=== PATIENT | female | born 2005 | race Caucasian/White ===

== ENCOUNTER 2025-04-08 10:20 | Observation (INO) ==
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
[2025-04-08] MEDS: MoRPHine SULFATE 4 MG/ML 1 ML CARP\\VIAL IV STA (11:20)
[2025-04-08] MEDS: ONDANSETRON INJ 2 MG/ML 2 ML VIAL IV STA (11:21)
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
--- NOTE | 2025-04-08 14:51 | XRay Report ---
XR ankle LT min 3V routine CLINICAL HISTORY: post-reduction COMPARISON: 04/08/2025 FINDINGS: Interval splint. There is improved alignment at the distal tibia and fibula fractures. The re is a small density adjacent to the medial malleolus and medial aspect of the talus, possible tiny avulsion fracture. No dislocation at the tibiotalar joint. IMPRESSION: Improved alignment. ACT 112: Negative or not required by law. Electronically signed by: Yonathan Dunlap M.D. 04/08/2025 2:49 PM
[2025-04-08] MEDS: KETAMINE HCL 10MG/ML SYR IV SCH (15:11)
[2025-04-08] MEDS: KETAMINE HCL 10MG/ML SYR ONE (15:11)
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
--- NOTE | 2025-04-08 18:48 | CT Scan Report ---
EXAM: CT ankle LT wo con CLINICAL HISTORY: fracture, dislocation - reduced TECHNIQUE: Contiguous axial CT images of the ankle joint were obtained without intravenous contrast. Sagittal and coronal multiplanar reformats were acquired. One of the following dose reduction techniques were utilized for this exam: Automated exposure control, adjustment of the mA and/or kV according to patient size, use of iterative reconstruction. COMPARISON: None. FINDINGS: Bones: Displaced comminuted spiral fracture of the lower third of the fibula, oblique intra-articular displaced fracture at the posterior and lateral aspects of the distal tibia Oblique fracture of the posterior tibial malleolus is noted Medial subluxation of the distal tibia with widening of the medial clear space suggesting syndesmotic injury along with widening of the distal tibiofibular interval. Multiple detached bone fragments at the medial aspect of the talus, the medial malleolus tip, and the talus's anterior lateral aspect Joints: Mild joint effusion. No erosions or osteophyte formation. Soft Tissues: Diffuse fat strandings along the subcutaneous and intermuscular fat planes at the distal leg and ankle joint's anterior, medial, and lateral aspects. Muscles: Normal appearance of the surrounding musculature. No muscle atrophy or abnormal density changes. Ligaments and Tendons: Normal appearance of the Achilles tendon and other tendons around the ankle. IMPRESSION: 1. Displaced comminuted spiral fracture of the lower third of the fibula, oblique intra-articular displaced fracture at the posterior and lateral aspects of the distal tibia. 2. Widening of the medial clear space as described suggesting underlying syndesmotic injury. MRI study is suggested if warranted clinically 3. Multiple detached bone fragments at the medial aspect of the talus, the medial malleolus tip, and the talus's anterior lateral aspect are likely avulsion fractures 4. Related joint effusion and soft tissue swellings Electronically signed by Joni Devine 04-08-2025 6:48 PM
[2025-04-08] MEDS ORDERED: ONDANSETRON INJ 2 MG/ML 2 ML VIAL IV PRN (19:06)
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
[2025-04-08] MEDS: HYDROmorphone INJ 0.5 MG/0.5 ML SYR IV PRN (21:03)
[2025-04-08] MEDS: KETOROLAC 30 MG/ML VIAL IV PRN (21:46)
[2025-04-08] MEDS: DOCUSATE SODIUM 100 MG CAP PO SCH (21:47)
[2025-04-08 22:09] LABS: Hematocrit (blood only) 33.9 % (37.0-47.0); Mean Corpuscular Hgb Conc 32.4 g/dL (32.0-36.0); Mean Corpuscular Volume 80.1 fL (80.0-100.0); Mean Platelet Volume 10.3 fL (9.4-12.4); Platelet Count 260 K/uL (130-400); RDW Coefficient of Variation 16.2 % (11.5-14.5); RDW Standard Deviation 47.4 fL (36.4-46.3); Red Blood Count 4.23 M/uL (4.20-5.40); White Blood Count 10.13 K/ul (4.8-10.8)
[2025-04-08] MEDS: oxyCODONE HCL IR 5 MG TAB (IMMEDIATE RELEASE) PO PRN (23:36)
[2025-04-09] MEDS ORDERED: BUPIVACAINE 0.25% PF 30 ML VIAL ONE (07:58)
[2025-04-09] MEDS ORDERED: DEXAMETHASONE SOD INJ 4 MG/ML VIAL ONE ×2 (07:58→12:21)
[2025-04-09] MEDS ORDERED: EPINEPHrine INJ 1 MG/ML AMP ONE (07:58)
[2025-04-09] MEDS: LACTATED RINGER'S 1,000 ML IV SCH (10:17)
--- NOTE | 2025-04-09 10:39 | Anesthesiology Consultation ---
Date of Service April 09, 2025 Assessment & Plan (1) Encounter for pre-operative examination: Chart Review Chart Review: Acceptable Risk for Surgery and Patient NOT seen in Pre Admission Testing Consults Requested none History Surgery Operation Date: 04/09/25 07:00 Proposed Procedures p Left Open Reduction Internal Fixation Ankle - Danny Gant MD Height/Weight Height: 5 ft 5 in Weight: 72.8 kg Allergies Allergy/AdvReac Type Severity Reaction Status Date / Time No Known Allergies Allergy Unverified 04/08/25 15:20 Medications Home Medications Medication Instructions Recorded Confirmed Last Taken No Known Home Medications 04/08/25 04/08/25 Unknown Active Medications Generic Name Dose Route Start Last Admin Trade Name Freq PRN Reason Stop Dose Admin Docusate Sodium 100 mg 04/08/25 21:00 04/09/25 07:32 Docusate Sodium 100 Mg Cap PO 05/08/25 20:59 100 mg BID LUIS Administration Hydromorphone HCl 0.25 mg 04/08/25 20:50 04/09/25 03:57 Hydromorphone Inj 0.5 Mg/0.5 Ml Syr IV 04/22/25 20:49 0.25 mg Q6H PRN Administration Pain Lactated Ringer's 1,000 mls @ 15 mls/hr 04/09/25 10:15 04/09/25 10:17 Lr IV 04/12/25 10:14 15 mls/hr .Q24H LUIS Administration Ketorolac Tromethamine 30 mg 04/08/25 19:06 04/09/25 07:32 Ketorolac 30 Mg/Ml Vial IV 04/13/25 19:05 30 mg Q6H PRN Administration Pain Oxycodone HCl 5 mg 04/08/25 20:50 04/08/25 23:36 Oxycodone Hcl Ir 5 Mg Tab (Immediate Release) PO 04/22/25 20:49 5 mg Q4 PRN Administration Pain NPO Date Last Intake of Fluids: 04/08/25 Time Last Intake of Fluids: 23:00 Date Last Intake of Solids: 04/08/25 Time Last Intake of Solids: 23:00 Past Medical History Medical History (Updated 04/09/25 @ 10:39 by Stephon Worthy MD) Encounter for pre-operative examination No pertinent past medical history Exercise / Class Metabolic Activity II 4-5 Yardwork/Stairs/Walk up hill Social History Smoking Status: Current every day smoker Do You Dip or Chew Tobacco: No Hx Alcohol Use: Yes Alcohol type: wine and hard liquor alcohol intake frequency: a few times a month Hx Substance Use: Yes substance use type: marijuana Last Used Substance: Days (ago) Last Used Substance Other:: Approximately 3 weeks since last marijuana use. Physical Exam Vital Signs Last Vital Signs Temp 36.6 C 04/09/25 10:07 Pulse 99 H 04/09/25 10:07 Resp 20 04/09/25 10:07 BP 114/72 04/09/25 10:07 Pulse Ox 99 04/09/25 10:07 O2 Del Method Room Air 04/09/25 10:07 O2 Flow Rate 2 04/08/25 14:56 Testing Laboratory Results 04/08/25 21:54 Blood Type B Positive 04/08/25 19:29 Antibody Screen NEGATIVE 04/08/25 19:29 04/08/25 17:01 POC Ur Test NEG
[2025-04-09] MEDS ORDERED: fentaNYL citrate PF 100 MCG/2 ML VIAL IV PRN (10:52)
[2025-04-09] MEDS ORDERED: ePHEDrine sulfate 50 MG/ML AMP IV PRN (10:52)
[2025-04-09] MEDS ORDERED: ONDANSETRON INJ 2 MG/ML 2 ML VIAL IV PRN (10:52)
[2025-04-09] MEDS ORDERED: PROMETHAZINE HCL 6.25 MG in SODIUM CHLORIDE 0.9% 50 ML IV PRN (10:52)
[2025-04-09] MEDS ORDERED: ATROPINE SULFATE 0.1 MG/ML 10ML SYR IV PRN (10:52)
--- NOTE | 2025-04-09 11:34 | History & Physical Bridge Note ---
Date of Service April 09, 2025 History & Physical Bridge Note I have examined the patient, reviewed the History & Physical and in the interval since the performance of the History & Physical I have noted the following changes of clinical significance: no changes noted
[2025-04-09] MEDS ORDERED: MIDAZOLAM HCL 1 MG/ML 2ML VIAL ONE (11:36)
[2025-04-09] MEDS ORDERED: LIDOCAINE 2% 2 ML VIAL/AMP(20MG/ML) INFIL ONE (12:04)
[2025-04-09] MEDS ORDERED: PROPOFOL IV EMULSION 10 MG/ML 20 ML VIAL IV ONE (12:04)
[2025-04-09] MEDS: ceFAZolin 2000MG 2,000 MG/15 ML SYR IV SCH ×2 (12:15→20:31)
[2025-04-09] MEDS ORDERED: ONDANSETRON INJ 2 MG/ML 2 ML VIAL ONE (12:21)
[2025-04-09] MEDS: TRANEXAMIC ACID 100 MG/ML 10 ML VIAL IV ONE (12:23)
[2025-04-09] MEDS ORDERED: fentaNYL citrate PF 100 MCG/2 ML VIAL ONE (12:24)
[2025-04-09] MEDS: LIDOCAINE 1%/EPINEPHRINE 1:100,000 50 ML VIAL ONE (13:24)
[2025-04-09] MEDS: BUPIVACAINE/EPINEPHRINE 0.5% MPF 1:200,000 30 ML VIAL ONE (13:24)
[2025-04-09] MEDS: TRANEXAMIC ACID / 0.7% NACL 1000MG/100ML BAG IV ONE (13:27)
[2025-04-09] MEDS ORDERED: HYDROmorphone INJ 1 MG/ML SYRINGE ONE (13:57)
[2025-04-09] MEDS: VANCOMYCIN HCL 1000MG/20ML VIAL ONE (14:11)
--- NOTE | 2025-04-09 14:33 | Fluoroscopy Report ---
FL ankle LT 2V CLINICAL HISTORY: LT ORIF ANKLE COMPARISON STUDY: 04/08/2025 FLUOROSCOPY TIME: 45 seconds FLUOROSCOPY IMAGES: 5 EXPOSURE DOSE: 2 mGy FINDINGS: Fluoroscopy was provided for internal fixation of the left ankle. IMPRESSION: Intraoperative fluoroscopy. ACT 112: Negative or not required by law. Electronically signed by: Yonathan Dunlap M.D. 04/09/2025 2:31 PM
[2025-04-09] MEDS ORDERED: KETOROLAC 30 MG/ML VIAL ONE (14:36)
--- NOTE | 2025-04-09 14:54 | Operative Report ---
Post Operative Report Pre & Post Diagnosis Operation Date: 04/09/25 07:00 Pre-Op Diagnosis: Fracture dislocation of left ankle Post-Op Diagnosis: Fracture dislocation of left ankle I identified the patient and participated in the time-out.: Yes Procedure Operation Date: 04/09/25 07:00 Actual Procedures p Left Open Reduction Internal Fixation Ankle(Left) - Danny Gant MD Surgeon Danny Gant MD Media Theorist And Author Of Luz Grant PA-C; Denny Alex MS-2 Estimated Blood Loss 5 Findings Consistent with Post-Op Diagnosis Specimens none Description of Procedure I was present during the entire case assisting with positioning, prepping, draping, wound retraction, wound closure, dressing and splint application. No fellow present. Please see Dr. Gant procedure note for specifics of the case. I attest to the content of the Intraoperative Record and any orders documented therein. Any exceptions are noted below.
--- NOTE | 2025-04-09 15:02 | Operative Report ---
Post Operative Report Pre & Post Diagnosis Operation Date: 04/09/25 07:00 Pre-Op Diagnosis: Fracture dislocation of left ankle Post-Op Diagnosis: Fracture dislocation of left ankle, Mcgee C type lateral malleolus fracture with a shell like posterior malleolar fracture, medial deltoid ligament disruption and syndesmotic disruption I identified the patient and participated in the time-out.: Yes Procedure Operation Date: 04/09/25 07:00 Actual Procedures p Left Open Reduction Internal Fixation Ankle, ORIF of syndesmosis and repair of medial deltoid ligament avulsion(Left) - Danny Gant MD Surgeon Danny Gant MD Linen Room Attendant Luz Grant PA-C; Denny Alex MS-2 Estimated Blood Loss 5 Findings Consistent with Post-Op Diagnosis Specimens None Anesthesia Type General Regional Complications none Disposition Accompanied Patient To Recovery: No Disposition: Recovery Room Indications Patient sustained a fall yesterday and a fracture dislocation of her left ankle. It was reduced in the ER. Patient was admitted to the hospital for possible surgery today depending on her swelling. Description of Procedure Patient identified. Informed consent obtained. Preprocedural timeout performed. I identified the operative site and marked with my initials. A preop surgical timeout performed. Preop dose of IV antibiotics given. She was taken to the OR positioned supine on the operating room table. The anesthetic was administered. A tourniquet was applied to the left thigh. Bone foam pad under the leg was utilized. 2 bumps under the left hip. She was inspected in the holding area and found to have minimal swelling and bruising. No blistering. Skin wrinkles are present and no tight shiny skin. She received a preop dose of IV antibiotics and TXA. DVT prophylaxis with early patient mobility.Her ankle was unstable medial to lateral. Fluoroscopic guidance was utilized about the surgical procedure. Limb exsanguinated with the Esmarch. Tourniquet plated 250 mmHg. Approximate 15 cm lateral incision was made centered over the fracture site. There was a 1 inch fat layer which was dissected down through to the level of the periosteum. Careful subperiosteal with exposure of the fracture site was performed and is much as to see the posterior butterfly fragment but not dissected out or devascularize it. The main fibular fracture fragments were dissected free of soft tissues and intervening soft tissue was removed. The fracture site was cleaned with irrigation dental pick and curette. This was a small short oblique jagged fracture which was transverse anteriorly with a butterfly fragment posterior. Using bone clamps I was able to anatomically reduce it and adjust rotation as I could see both the medial and lateral cortices. Once this was anatomically aligned I put a bone clamp across the fracture holding the posterior butterfly fragment in place as a reduction aid. I then selected a 10 hole one third tubular plate and pre-bent bent it to aligned with the fibula. There was slight bowing of the fibula laterally which was corrected when the plate was applied and the screws were inserted. I applied the plate so that there were 2 screws over the fracture site and 4 proximal and distal and 1 in position for a syndesmotic screw. This was checked in the AP and lateral planes. Of note the medial clear space was able to be anatomically aligned in this position and the posterior malleolar fracture was anatomically aligned. The plate was bent and twisted to align reasonably well to the bone. I inserted a bicortical cortical screws proximally and distally to hold the plate in place and then fixated with 3 additional locking screws proximally and 2 additional locking screws distally. All were bicortical. Fracture was anatomically reduced and aligned. I then made a medial incision and bluntly dissected down to the level of the periosteum. The anterior half of the deltoid ligament had been avulsed. The saphenous neurovascular structures were not identified but were retracted anteriorly with the skin flap. I placed a large bone clamp across the ankle mortise. The ankle was maximally dorsiflexed. The clamp was tightened. A 3.5 millimeter screw was inserted in a bicortical fashion and adjusted x 1 to be in the appropriate position. Initially angled too far anterior and slightly oblique. Prior to this the syndesmosis was stressed and found to be unstable. Preop prior to fixing this I opened the medial side and I could insert a Markham in between the medial malleolus and the medial talus and I swept through there to make sure that there was no intervening soft tissue. After the syndesmosis had been fixated this was not possible. The medial side was irrigated out to ensure that there were no bone fragments present. The syndesmotic screw was a 3.5 mm for cortical screw which was several millimeters proud on the medial side on purpose. I then used 2 Arthrex all suture anchors to repair the medial deltoid ligament back in an anatomic location using horizontal mattress stitches. Tourniquet let down. Meticulous hemostasis achieved. On the lateral side the lateral compartment had been opened and elevated off of the fibula for exposure. This was allowed to fall back over the proximal half of the plate. There really was not any periosteum per se to fixate over the plate at this level. I carefully took some small bites through the fatty layer and reapproximated the deep tissues with 0 Vicryl. This was followed by 2-0 Vicryl and 3-0 Vicryl on the skin and alex. On the medial side 2-0 and 3-0 Vicryl used for the dermal layer followed by alex. The leg was cleaned with wet and dry sponges a soft roll dressing was applied Xeroform 4 x 4's ABD soft wrap and a posterior splint with the ankle in neutral position. [employer] Sales Associate images of the hardware and reduction of the ankle mortise syndesmosis and posterior malleolar fracture were obtained. Patient wake from anesthesia without difficulty and taken to the recovery room in stable condition. There were no specimens or complications. Counts were correct and blood loss estimated to be 5 cc. At the conclusion of the operation I spoke the patient's family informed of my findings and postop instructions were given. She will be admitted to the hospital for elevation postop antibiotics. She will be nonweightbearing on the left leg for 6 weeks. Follow- up in 2 weeks for recheck. Half a gram of powdered vancomycin was distributed between the medial and lateral incisions. At the time of closure. I attest to the content of the Intraoperative Record and any orders documented therein. Any exceptions are noted below.
--- NOTE | 2025-04-09 15:28 | Anesthesiology Progress Note ---
Date of Service April 09, 2025 Anesthesia Post Procedure Vital Signs Vital Signs: Temp Pulse Pulse Pulse Resp BP Pulse Ox 04/09/25 15:20 85 16 115/68 100 04/09/25 15:10 79 12 100/59 L 100 04/09/25 15:00 83 12 107/55 L 100 04/09/25 14:54 36 C L 91 H 16 111/62 100 04/09/25 10:07 36.6 C 99 H 20 114/72 99 04/09/25 07:22 36.6 C 84 16 103/67 99 04/08/25 20:52 36.7 C 103 H 18 108/79 97 04/08/25 20:52 36.7 C 103 H 18 108/79 97 04/08/25 20:52 04/08/25 20:25 104 H 04/08/25 20:00 98 H 19 108/79 99 04/08/25 18:00 95 H 18 111/76 99 04/08/25 16:26 99 H 04/08/25 16:00 80 17 106/67 99 Pulse Ox O2 Del Method O2 Del Method O2 Flow Rate 04/09/25 15:20 Oxymask 2 04/09/25 15:10 Oxymask 6 04/09/25 15:00 Oxymask 6 04/09/25 14:54 Oxymask 6 04/09/25 10:07 Room Air 04/09/25 07:22 Room Air 04/08/25 20:52 Room Air 04/08/25 20:52 Room Air 04/08/25 20:52 99 Room Air 04/08/25 20:25 04/08/25 20:00 04/08/25 18:00 04/08/25 16:26 04/08/25 16:00 Room Air Pain Intensity Left Ankle: Pain Intensity: 5 Transfer of Care Handoff Completed per policy Notes Mental Status: alert / awake / arousable Patient Amnestic to Procedure: Yes Nausea / Vomiting: adequately controlled Pain: adequately controlled Airway Patency, RR, SpO2: stable & adequate BP & HR: stable & adequate Hydration State: stable & adequate Anesthetic Complications: no major complications apparent and Pt Satisfied with anesthetic care
--- NOTE | 2025-04-09 17:19 | Emergency Department Note ---
Pre Sedation Assessment Vital Signs Pulse Resp BP Pulse Ox 04/08/25 18:00 95 H 18 111/76 99 Cardiovascular RRR, no murmur, no edema + regular rate + capillary refill normal Respiratory normal respiratory effort, lungs clear to auscultation Pre-Sedation Airway Assessment Smoking Status: Current every day smoker Hx Sleep Apnea: No Short, Thick Neck: No Thyromental Distance: > or= 3.5 Finger Breadths Oral Cavity: + WNL Mallampati Class: II ASA: ASA2 NPO Status Date of Last Intake of Fluids: 04/08/25 Time of Last Intake of Fluids: Last Oral Intake of Fluids Comment: water Date of Last Intake of Solid Food: 04/08/25 Time of Last Intake of Solid Foods: Procedure Planning Contraindications for Sedation: none Current Medications Reviewed: Yes Notes The planned sedation has been discussed with the patient. Informed Consent was obtained. I have identified the patient, determined the appropriateness of sedation and have assessed the patient immediately prior to the procedure. All medicine(s) and interventions are by my order.
--- NOTE | 2025-04-09 17:20 | Emergency Department Note ---
Post Sedation Assessment Vital Signs Pulse Resp BP Pulse Ox 04/08/25 18:00 95 H 18 111/76 99 Recovery Score Activity: Moves 4 extremities Respiration: Deep Breath/Cough Circulation: +/-20% PreAnes Value Consciousness: Arouseable (by name) Oxygen Saturation: > 92% On Room Air Post Anesthesia Score: 9 Discharge Sedation Level of Care: Fast Track Phase II Unexpected Event: None Post Sedation Plan On clinical assessment, the patient appears to have tolerated the sedation without complications. Patient is recovering as anticipated. Patient will continue to be monitored by nursing and may be discharged when sedation discharge criteria are met per below protocol. Upon Completions of procedure up to 15 minutes continue every 5 minute vital signs and the P.A.R. score; then discharge to a Phase I or Fast Track to Phase II per the following guidelines: * Discharge Patient to appropriate Phase II area if PAR is 8 or greater or return to pre- procedure baseline. The post - procedure orders will be as directed. * If PAR score is less than 8 or not return to pre-procedure baseline then patient will follow Phase I monitoring till PAR is reached for Phase II. The Phase I may be done in procedure room or may call to secure a Phase I area. * If naloxone or flumazenil are used for reversal, hold in Phase I for continued monitoring from when last reversal dose was given for a minimum of 60 minutes or longer pending the nurse and/or physician discretion of patient condition before discharge to Phase II. Please call the Sedation Physician to re-evaluate and complete post-note for discharge to Phase II area. Do NOT discharge from procedure sedation or Phase 1 until post- sedation evaluation note is complete by procedure /sedation MD Sedation Discharge Instructions to be given to the patient at discharge to home. Sedation Data Time Out Team Members Agree on the Following: Correct Patient, Correct Procedure, Correct Site-Side and Allergies Verified Sedation Times Sedation Start Date: 04/08/25 Sedation Start Time: 14:31 Sedation End Date: 04/08/25 Procedure Times Procedure Start Time:: 14:33 Procedure End Time: 14:39
--- NOTE | 2025-04-09 18:31 | Orthopedic Progress Note ---
Date of Service April 09, 2025 Assessment & Plan (1) Fracture dislocation of ankle joint: Plan: Findings discussed. Surgical results reviewed. She is stable postop. Plan for IV antibiotics and PT OT. DVT risk is low and I do not think she requires any formal chemoprophylaxis. Admission and Anticipated Discharge Date Admission Date: April 08, 2025 Subjective Doing well. Surgical findings discussed. Comfortable without significant pain. Physical Exam Physical Exam: She has no feeling in her foot and cannot wiggle her toes secondary to her nerve block. Her foot is warm with capillary refill less than 2 seconds throughout all of her toes Results & Data Vital Signs (Past 12 Hours) Vital Signs Temp Pulse Pulse Resp BP Pulse Ox O2 Del Method 04/09/25 17:49 36.9 C 98 H 18 108/70 99 Room Air 04/09/25 16:44 36.8 C 97 H 16 100/59 L 99 Room Air 04/09/25 16:19 36.9 C 90 15 107/69 98 Room Air 04/09/25 15:44 37.1 C 95 H 16 106/63 97 Room Air 04/09/25 15:30 36.6 C 78 16 112/72 97 Room Air 04/09/25 15:20 85 16 115/68 100 Oxymask 04/09/25 15:10 79 12 100/59 L 100 Oxymask 04/09/25 15:00 83 12 107/55 L 100 Oxymask 04/09/25 14:54 36 C L 91 H 16 111/62 100 Oxymask 04/09/25 10:07 36.6 C 99 H 20 114/72 99 Room Air 04/09/25 07:22 36.6 C 84 16 103/67 99 Room Air O2 Flow Rate 04/09/25 17:49 04/09/25 16:44 04/09/25 16:19 04/09/25 15:44 04/09/25 15:30 04/09/25 15:20 2 04/09/25 15:10 6 04/09/25 15:00 6 04/09/25 14:54 6 04/09/25 10:07 04/09/25 07:22
[2025-04-09] MEDS: ACETAMINOPHEN 325 MG TAB PO PRN (22:21)
[2025-04-09] MEDS: hydrOXYzine HCl 25 MG TAB PO PRN (22:23)
[2025-04-09] MEDS: hydrOXYzine HCl 25 MG TAB ONE (22:46)
[2025-04-10 02:40] VITALS: PULSE 74; RESP 16
[2025-04-10 07:26] VITALS: BP 110/68; TEMP 97.9; O2SAT 98
--- NOTE | 2025-04-10 10:06 | Orthopedic Progress Note ---
Date of Service April 10, 2025 Assessment & Plan (1) Fracture dislocation of ankle joint: Plan: Findings discussed. I think her nerve block is still present and slowly wearing off. I do not see any evidence of compartment syndrome and I doubt there is any significant neurovascular injury. PT today for mobility. If she is doing well with PT and her pain is controlled will consider discharge. Will closely monitor her resolution of the nerve block as an outpatient. Continue with elevation icing and nonweightbearing. She will follow-up in 2 weeks for wound check.She does not require any DVT prophylaxis. Admission and Anticipated Discharge Date Admission Date: April 08, 2025 Subjective Patient resting comfortably. Reports that her foot is still numb and that she cannot move her toes. She did have some pain at night. She has felt some [id number] in her leg. She cannot feel her upper leg. Physical Exam Physical Exam: She is able to do a leg lift and bend her knee. She cannot move her ankle or her toes. The foot is warm with capillary refill less than 2 seconds. The splint is taken down. The incisions are visualized and left covered. DP and PT pulses are both 1+ palpable. The foot is nontender and compartments are soft and the foot and leg. Swelling is mild to moderate certainly not severe and there is no evidence of significant fluid accumulation. She reports no feeling on the top and bottom of her foot. She does have some evolving sensation dull in nature or paresthetic on the mid leg. Normal sensation in the upper leg near the calf. Results & Data Vital Signs (Past 12 Hours) Vital Signs Temp Pulse Pulse Resp BP Pulse Ox O2 Del Method 04/10/25 07:26 36.6 C 74 16 110/68 98 Room Air 04/10/25 02:38 36.5 C 74 16 107/66 96 Room Air 04/09/25 22:27 36.6 C 87 18 97/60 L 98 Room Air
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
== END 2025-04-10 13:15 | disposition home or self-care (01) | DRG 494 ==
LOC: ED 10:20 → 3W 19:06 → INTOOBSV 19:06 → 3W 20:38